=== PATIENT | female | born 1975 | race African-American/Black ===

== ENCOUNTER 2025-01-23 19:25 | Emergency (ER) | payer MEDICAID, MEDICARE ==
[~2025-01-23] VITALS: Ht 167.6 cm; Wt 155.0 kg
[~2025-01-23 19:25] MED LIST: LOSA25TA26
[2025-01-23 19:43] VITALS: TEMP 37.1; O2SAT 99
[2025-01-23 20:33] LABS: BASOPHILS % 0.5 % (0.0-2.0); EOSINOPHILS % 0.6 % (0.0-5.0); HEMATOCRIT. 52.4 % (36.0-48.0); HEMOGLOBIN. 17.3 g/dL (12.0-16.0); LYMPHOCYTES % 33.2 % (20.0-50.0); MEAN CORPUSCULAR HEMOGLOBIN 30.8 pg (28.0-32.0); MEAN CORPUSCULAR HGB CONC 33.1 g/dL (31.0-37.0); MEAN CORPUSCULAR VOLUME 93.3 fL (81.0-99.0); MEAN PLATELET VOLUME 9.2 fl (7.4-10.4); MONOCYTES % 5.8 % (2.0-8.0); NEUTROPHILS % 59.9 % (40.0-76.0); PLATELET 270 x1000/uL (130-400); RED BLOOD CELL COUNT 5.62 mill/uL (4.2-5.4); WHITE BLOOD COUNT 11.5 x1000/uL (4.5-11.0)
[2025-01-23] MEDS: ONDANSETRON 4MG ODT PO STA (20:37)
[2025-01-23] MEDS: MAGNESIUM/ALUMINUM HYDROXIDE/SIMETHICONE 30ML UDC PO STA (20:38)
[2025-01-23 20:39] LABS: CARBON DIOXIDE 23 mEq/L (21-32); CHLORIDE 99 mEq/L (98-107); POTASSIUM 3.9 mEq/L (3.5-5.1); SODIUM 136 mEq/L (136-145)
[2025-01-23 20:40] LABS: CALCIUM 10.4 mg/dL (8.7-10.4)
[2025-01-23] MEDS: FAMOTIDINE 20MG/2ML VIAL IV STA (20:40)
[2025-01-23 20:44] LABS: CREATININE 0.7 mg/dL (0.6-1.0)
[2025-01-23 20:45] LABS: ETHANOL BLOOD < 10 mg/dL (<10); GLUCOSE 332 mg/dL (70-105); TROPONIN I HIGH SENSITIVITY 10 ng/L (3.0-34); UREA NITROGEN BLOOD 11 mg/dL (9-23)
[2025-01-23 20:46] LABS: ALANINE AMINOTRANSFERASE 18 IU/L (10-49); ALBUMIN 4.2 g/dL (3.2-4.8); ASPARTATE AMINOTRANSFERASE 19 IU/L (<34); INR 1.1; PROTHROMBIN TIME 11.4 sec (9.6-11.0)
[2025-01-23] MEDS: SODIUM CHLORIDE 0.9% 1,000 ML IV ONE (20:46)
[2025-01-23 20:47] LABS: BILIRUBIN DIRECT 0.3 mg/dL (<=3.0); BILIRUBIN TOTAL 1.3 mg/dL (0.1-1.0)
[2025-01-23 20:59] LABS: HCG SCREEN NEGATIVE
[2025-01-23] MEDS ORDERED: ONDA-239 PO (22:27)
[2025-01-23 23:15] VITALS: BP 134/86; PULSE 100; RESP 24; O2SAT 100
== END 2025-01-23 23:35 | disposition home or self-care (01) ==
LOC: ER 19:25
DX: R11.2 Nausea with vomiting, unspecified (principal); T50.905A Adverse effect of unspecified drugs, medicaments and biological substances, initial encounter; F12.90 Cannabis use, unspecified, uncomplicated; E11.9 Type 2 diabetes mellitus without complications; I10 Essential (primary) hypertension; F17.200 Nicotine dependence, unspecified, uncomplicated; Z79.85 Long-term (current) use of injectable non-insulin antidiabetic drugs; Z98.890 Other specified postprocedural states; Y92.89 Other specified places as the place of occurrence of the external cause
CPT/HCPCS: 80076; 80048; 80320; 84703; 83690; 85025; 85610; 84484; 36415; 71045; 76700; 93005; 96361; 96374; 99285; Q0162; J3490; J7030; G0480